=== PATIENT | male | born 1995 | race Caucasian/White ===

== ENCOUNTER 2018-07-14 13:22 | Emergency (ER) | payer MEDICAID, SELFPAY ==
[~2018-07-14 13:22] MED LIST: Sterile Water Irrigation 250 ML BOT ONE
[2018-07-14] MEDS ORDERED: Lidocaine 1% w/Epinephrine 1:100K 30 ML VIAL ONE (13:30)
[2018-07-14] MEDS ORDERED: Lidocaine 1% 20 ML MDV ONE (13:31)
[2018-07-14] MEDS ORDERED: Adacel (T-DAP) 0.5 ML SYRINGE ONE (13:43)
[2018-07-14] MEDS ORDERED: HYDROcodone/Acetaminophen 5/325 mg Tablet ONE (13:49)
[2018-07-14] MEDS ORDERED: CEFAZOLIN 1 GM VIAL ONE (14:14)
--- NOTE | 2018-07-14 14:40 | RAD ---
LEFT FOURTH FINGER: Date: 07/14/18 HISTORY: Injury. FINDINGS: There is soft tissue and bony injury of the distal fourth finger with overlying bandage material and some soft tissue air. There is a comminuted fracture of the distal tuft of the distal phalanx. IMPRESSION: Soft tissue and bony avulsion from injury of the distal fourth finger with some soft tissue air and o verlying bandage material. POS: [facility]
== END 2018-07-14 15:40 | disposition short-term general hospital (02) ==
LOC: MADERS 13:22
DX: S62.635B Displaced fracture of distal phalanx of left ring finger, initial encounter for open fracture (principal); S60.413A Abrasion of left middle finger, initial encounter; W45.8XXA Other foreign body or object entering through skin, initial encounter
CPT/HCPCS: 90471; 90715; 96372; J0690; J2001